=== PATIENT | male | born 1985 | race Caucasian/White ===

== ENCOUNTER → 2020-09-11 | Outpatient (CLI) | payer OTHER ==
[2020-09-11 12:40] LABS: RED BLOOD COUNT 4.61 M/UL (4.20-5.50); WHITE BLOOD COUNT 6.4 K/UL (4.5-11.0)
[2020-09-11 13:04] LABS: BUN/CREATININE RATIO 16 (0-10)
[2020-09-12 09:17] LABS: THYROXINE (T4) 8.8 ug/dL (4.5-12.0)
== END ==
LOC: LAB 12:07
PROVIDERS: Nurse Practitioner Family
DX: Z13.1 Encounter for screening for diabetes mellitus (principal); Z13.220 Encounter for screening for lipoid disorders; F15.10 Other stimulant abuse, uncomplicated; R60.9 Edema, unspecified; F17.210 Nicotine dependence, cigarettes, uncomplicated
CPT/HCPCS: 36415; 71046; 80053; 80061; 81001; 83036; 83880; 84436; 84443; 84480; 85025

== ENCOUNTER 2021-03-02 10:49 | Emergency (ER) | payer OTHER | END 2021-03-02 12:37 | disposition home or self-care (01) | LOC: ER1 10:49 | DX: S39.012A Strain of muscle, fascia and tendon of lower back, initial encounter (principal); F17.200 Nicotine dependence, unspecified, uncomplicated; Z88.0 Allergy status to penicillin; X58.XXXA Exposure to other specified factors, initial encounter | CPT/HCPCS: 96372; 99283; J1885 ==

== ENCOUNTER 2021-03-08 14:44 | Emergency (ER) | payer OTHER ==
[2021-03-08] MEDS ORDERED: IBUPROFEN600 MG PO (14:58)
== END 2021-03-08 15:17 | disposition home or self-care (01) ==
LOC: ER1 14:44
DX: M54.50 Low back pain, unspecified (principal); F17.210 Nicotine dependence, cigarettes, uncomplicated
CPT/HCPCS: 99283

== ENCOUNTER 2021-10-25 11:36 | Emergency (ER) | payer OTHER ==
[~2021-10-25 11:36] MED LIST: IBUPROFEN600 MG PO
[2021-10-25] MEDS ORDERED: ANAPROX DS550 MG PO (20:14)
== END 2021-10-25 20:32 | disposition home or self-care (01) ==
LOC: ER1 11:36
DX: M51.17 Intervertebral disc disorders with radiculopathy, lumbosacral region (principal); F17.200 Nicotine dependence, unspecified, uncomplicated; Z88.0 Allergy status to penicillin
CPT/HCPCS: 72131; 73552; 96372; 99284; J1100; J1885